=== PATIENT | male | born 1955 | race Caucasian/White ===

== ENCOUNTER → 2020-06-15 09:35 | Outpatient (BNVA) | payer MEDICARE, SELFPAY | PROVIDERS: PCP Family Medicine; Referring Provider Family Medicine; Visit Provider Anesthesiology | DX: G89.29 Other chronic pain (principal); M54.41 Lumbago with sciatica, right side; M54.42 Lumbago with sciatica, left side; M54.9 Dorsalgia, unspecified; K62.89 Other specified diseases of anus and rectum; G62.9 Polyneuropathy, unspecified; R20.0 Anesthesia of skin; Z79.891 Long term (current) use of opiate analgesic | CPT/HCPCS: 99204 ==

== ENCOUNTER → 2020-06-23 09:14 | Outpatient (BNVA) | payer MEDICARE, SELFPAY | PROVIDERS: PCP Family Medicine; Referring Provider Anesthesiology; Visit Provider Orthopaedic Surgery | DX: M54.41 Lumbago with sciatica, right side (principal); M54.42 Lumbago with sciatica, left side; G89.29 Other chronic pain; M48.061 Spinal stenosis, lumbar region without neurogenic claudication; M51.27 Other intervertebral disc displacement, lumbosacral region | CPT/HCPCS: 72114 ==

== ENCOUNTER → 2020-07-04 10:23 | Outpatient (BNVA) | payer MEDICARE, SELFPAY | PROVIDERS: PCP Family Medicine; Visit Provider Orthopaedic Surgery | DX: Z01.812 Encounter for preprocedural laboratory examination (principal); M48.061 Spinal stenosis, lumbar region without neurogenic claudication | CPT/HCPCS: 87635 ==

== ENCOUNTER 2020-07-11 08:31 | Day surgery (SDC) | payer MEDICARE, SELFPAY ==
[2020-07-08 15:15] VITALS: BMI 25.8
[2020-07-11] VITALS (7 sets, daily range): BP systolic 126–150; BP diastolic 72–97; PULSE 86–101; RESP 16–20; TEMP 36.3–36.6; O2SAT 95–100
--- NOTE | 2020-07-11 | XR_ITS ---
WS: [id number] C-ARM RADIOGRAPHS LUMBAR SPINE; 3 IMAGES HISTORY: L5,S1 DECOMPRESSION COMPARISON: 06/23/2020 Intraoperative imaging during spine decompression. Marker indicates L5-S1 level. XR/XR lumbar spine 2-3V* [id number] IMPRESSION: Marker placed at the L5-S1 level.
--- NOTE | 2020-07-11 | SCC_ITS ---
Procedure Done: 1. L5/S1 laminectomy with bilateral partial facetectomies 11.9 seconds of fluoroscopic guidance, for a cumulative dose of 3.94 mGy, was provided to Dr. Morris- by the radiology department. C-arm images of the lumbar spine were saved for the patient's permanent record. [facility]
[2020-07-11] MEDS: sodium chloride 0.9% 1,000 ML 30 ML IV (09:36)
--- NOTE | 2020-07-11 09:45 | ANES.PREANE2 ---
Pre-Anesthetic Assessment Pre-Anesthetic Assessment: Height/Weight: Height 1.78 m Weight 81.647 kg Temp Pulse Resp BP Pulse Ox 97.4 F L 87 18 147/84 100 07/11/20 09:09 07/11/20 09:09 07/11/20 09:09 07/11/20 09:09 07/11/20 09:09 Preop Diagnosis: lumbar stenosis Proposed Procedure: Operation Date: 07/11/20 09:45 Proposed Procedures p L5-S1 bilateral decompression, right side approach/ 79840, 00641 m48.061(Bilateral) - Connor Morris DO Familial anesthetic complications: None Was Beta Dani taken within 24 hours: N/A Last intake: Intake Last Liquid Date 07/10/20 Last Liquid Time 18:00 Last Solid Date 07/10/20 Last Solid Time 18:00 Social: Social History: No alcohol and No tobacco Exam: Pre-Anes Outpt Exam: alert, oriented x 3, clear to auscultation bilaterally and regular rate & rhythm Airway: Cervical ROM: WNL MP: 3 Dentition: Chipped CV/HEM: CV/HEM: HTN Musc/skel: Musc/skel: Lower Back Pain Neuropsych: Neuropsych: Neuropathy Anesthetic Plan: ASA status: 2 Anesthesia: General Risk of > 500 ml blood loss (7ml/kg in children): No Meds/Allergies Current Medications: Current Medications Generic Name Dose Route Start Last Admin Trade Name Freq PRN Reason Stop Dose Admin Sodium Chloride 1,000 mls @ 30 ml s/hr 07/11/20 09:00 07/11/20 09:36 Sodium Chloride 0.9% IV 07/12/20 08:59 30 mls/hr .Q24H YELITZA Administration PFSH Anesthesia PFSH: Medical History Chronic midline low back pain with bilateral sciatica Decreased rectal sphincter tone Encounter for narcotic contract discussion Neuropathy Numbness buttock, scrotum and penis Spinal fracture old L2 compression fracture Family History Brother Cancer Father Heart disease Mother Hypertension Social History Smoking and tobacco status: former smoker Alcohol intake: current Desire information about alcohol rehabilitation?: No Counseling given: No Data Anesthesia Cardiac Studies: No Data to Display
--- NOTE | 2020-07-11 10:35 | W.PM.OPSUD ---
Surgery/Procedure H&P Update DATE OF PROCEDURE: July 11, 2020 DATE H&P PERFORMED: 06/23/20 H&P UPDATE INFORMATION: I have reviewed H&P completed within last 30 days, I have examined patient prior to procedure and No changes to prior documentation PREOP DIAGNOSIS: lumbar stenosis PLANNED PROCEDURE: Operation Date: 07/11/20 09:45 Proposed Procedures p L5-S1 bilateral decompression, right side approach/ 09143, 17087 m48.061(Bilateral) - Connor Morris DO
[2020-07-11] MEDS: clindamycin 900 MG/50 ML PREMIX 100 MG IV (11:14)
--- NOTE | 2020-07-11 12:37 | P.OP_ITS ---
Operative Report Date of procedure: July 11, 2020 Pre-op Diagnosis: lumbar stenosis L5/S1 Post-op diagnosis: same Procedure Done: 1. L5/S1 laminectomy with bilateral partial facetectomies Surgeon: Connor Morris Anesthesia: General Estimated blood loss (mL): 5 Condition: stable Disposition: PACU Procedure: 1. L5/S1 laminectomy with bilateral partial facetectomies Patient is brought to the operative suite. After undergoing anesthesia they are placed in the supine position. All areas of impingement are well padded. Patient is then prepped and draped in the normal sterile fashion. A skin incision is made over the L5-S1 level. This is confirmed under c-arm jair dance. A series of dilators are passed and the tubular retractor is docked on the L5 lamina. A bovie is used to clear the soft tissue off the lamina and the L 5/S1 facet joint. A high speed kenya is then used to perform the laminectomy and take down the medial aspect of the L 5/S1 facet joint. A kerrison rongeure was then used to take down the remaining lamina and smooth the edged of the laminectomy up to the point where the ligamentum flavum attaches. Attention was then brought to the medial aspect of the facet joint. The remaining medial aspect of the superior and inferior aspect of the facet joint were taken down with the kerrison from the pedicle of L5 to S1. The facet joint had significant hypertrophy. Attention was then brought to the Ligamentum Flavum. The ligament was taken d own from the lamina of L5 to S1 and out medially to the remaining facet joint. The ligament was thickened. The dura was then exposed. The dura was in good repair. The L5 nerve was then traced with a curette out the L5/S1 foramen and found to be adequately decompressed. The S1 nerve was traced with a curette around the S1 pedicle. The lateral recess was opened with a kerrison helping to further decompress the S1 nerve. The tubular retractor was then tilted to the contralateral side. The bovie was used to take down the soft tissue on the spinous process. The high speed kenya was used to take down the spinous process and then the contralateral lamina of L5. The kerrison rongeur was used to take down the remaining lamina to the point where the ligamentum flavum attached and the ligamentum flavum was taken down from L5 to S1. The kerrison rongeur was then used to reach across and take down the medial aspect of the contralateral L5/S1 facet joint.The currete was used to trace the contralateral L5 nerve out the L5/S1 foramen to make sure it was decompressed adequatesly and the S1 was traced around the S1 pedicle. The lateral recess was opened further with the kerrison to ensure the S1 is adequately decompressed. Wound is then irrigated copiously with saline and surgiflo is used to stop any bleeding. The tubular retractor is removed and the wound is closed with vicryl and monocryl suture. Glue is then used to protect the wound. A sterile dressing is then placed. Patient was then placed in the supine position and transferred to the PACU in stable condition.
--- NOTE | 2020-07-11 15:47 | ANE.PACU2 ---
Inpatient post-anesthesia follow up: Airway intact: Yes Vital signs: Temperature 98 F Pulse Rate 86 Respiratory Rate 18 Blood Pressure 136/80 Pulse Oximetry 97 Oxygen Delivery Me thod Room Air Oxygen Flow Rate 8 Fraction of Inspir ed Oxygen Hydration adequate: Yes Nausea and vomiting: No Pain level: 2 Mental status: Baseline
--- NOTE | 2020-07-11 15:48 | ANE.PACU2 ---
Inpatient post-anesthesia follow up: Airway intact: Yes Vital signs: Temperature 98 F Pulse Rate 86 Respiratory Rate 18 Blood Pressure 136/80 Pulse Oximetry 97 Oxygen Delivery Me thod Room Air Oxygen Flow Rate 8 Fraction of Inspir ed Oxygen Nausea and vomiting: No Pain level: 2 Mental status: Baseline
== END 2020-07-11 13:30 | disposition home or self-care (01) ==
PROVIDERS: PCP Family Medicine; Visit Provider Orthopaedic Surgery
PROC: (CPT 63005; principal; 2020-07-11 09:45)
DX: M48.07 Spinal stenosis, lumbosacral region (principal); I10 Essential (primary) hypertension; Z87.891 Personal history of nicotine dependence
CPT/HCPCS: 63047; 72100; 76000; 96365; J2405; J2704; J3010; J3490; J7030

== ENCOUNTER → 2020-07-19 10:51 | Outpatient (BNVA) | payer MEDICARE, SELFPAY | PROVIDERS: PCP Family Medicine; Visit Provider Anesthesiology | DX: G89.29 Other chronic pain (principal); M54.41 Lumbago with sciatica, right side; M54.42 Lumbago with sciatica, left side; Z79.891 Long term (current) use of opiate analgesic | CPT/HCPCS: 99213 ==

== ENCOUNTER → 2020-09-01 00:01 | Outpatient (BNVA) | payer MEDICARE, SELFPAY | PROVIDERS: PCP Family Medicine; Visit Provider Orthopaedic Surgery | DX: Z48.89 Encounter for other specified surgical aftercare (principal); M54.41 Lumbago with sciatica, right side; M54.42 Lumbago with sciatica, left side; G89.29 Other chronic pain | CPT/HCPCS: 72100 ==

== ENCOUNTER 2020-09-08 08:17 | Outpatient (CLI) | payer MEDICARE, SELFPAY ==
--- NOTE | 2020-09-08 08:45 | MR_ITS ---
WS: [id number] MRI LUMBAR SPINE NONCONTRAST HISTORY: M47.9 - Spondylosis, unspecified COMPARISON: 03/04/2020 TECHNIQUE: Sagittal and axial multisequence imaging is submitted. Very slight increase in the cervical lordosis. Mild straightening of the normal lumbar lordosis. 2 mm retrolisthesis of L2. There is a remote compre ssion fracture at L2 involving the superior endplate without retropulsion. This fracture was describe d as subacute on a prior MRI from 03/06/2020. No residual marrow edema. Schmorl's node defect along the superior endplate of L4. Mild disc space narrowing and desiccation at L1-2 and L3-4. Conus terminates normally at L1-2 disc level. L1-L2: Normal. L2-L3: Mild bilateral facet joint arthritis and ligamentum flavum hypertrophy. Small amount of fluid in the facet joints. Very mild narrowing of the foramen, LEFT greater than RIGHT. L3-L4: Mild diffuse annular disc bulging with moderate ligamentum flavum disease and facet arthritis. There is very mild narrowing of the subarticular recesses, LEFT greater than RIGHT. Mild bilateral f oraminal stenosis and subarticular stenosis. L4-L5: Diffuse annular disc bulging and osteophytic ridging. There is also a very small central disc protrusion with annular fissure. Mild ligamentum flavum disease and facet arthritis. Minimal encroac hment upon the LEFT subarticular recess by disc osteophyte disease. Only mild foraminal narrowing. L5-S1: Mild annular disc bulging is asymmetric to the RIGHT. RIGHT paracentral annular fissure. No si gnificant stenosis. MR/MR lumbar spine wo con* [id number] IMPRESSION: 1. Remote stable L2 20% compression fracture without retropulsion. 2. No significant central or foraminal stenosis. 3. Asymmetric disc bulge to the RIGHT at L5-S1 with annular fissure. 4. Mild bilateral foraminal and subarticular recess stenosis at L3-4 due to di sc osteophyte and facet disease. 5. Mild LEFT subarticular recess and foraminal narrowing at L4-5. 6. No significant progression of disease since the prior study from 03/04/2020.
== END 2020-09-08 08:18 | disposition home or self-care (01) ==
LOC: RADSHAW 08:21
PROVIDERS: PCP Family Medicine; Visit Provider Orthopaedic Surgery
DX: M47.9 Spondylosis, unspecified (principal); M48.061 Spinal stenosis, lumbar region without neurogenic claudication; S32.020A Wedge compression fracture of second lumbar vertebra, initial encounter for closed fracture; X58.XXXA Exposure to other specified factors, initial encounter; M51.27 Other intervertebral disc displacement, lumbosacral region
CPT/HCPCS: 72148

== ENCOUNTER → 2020-09-14 07:55 | Outpatient (BNVA) | payer MEDICARE, SELFPAY | PROVIDERS: PCP Family Medicine; Visit Provider Anesthesiology | DX: G89.29 Other chronic pain (principal); M54.41 Lumbago with sciatica, right side; M54.42 Lumbago with sciatica, left side; G62.9 Polyneuropathy, unspecified; K62.89 Other specified diseases of anus and rectum; K59.00 Constipation, unspecified; Z48.89 Encounter for other specified surgical aftercare | CPT/HCPCS: 99213 ==

== ENCOUNTER 2020-09-18 11:48 | Inpatient (IN) | payer MEDICARE, SELFPAY ==
[2020-09-18 11:52] VITALS: BP 148/89; PULSE 136; RESP 18; TEMP 36.9; O2SAT 97; BMI 29.4
--- NOTE | 2020-09-18 11:56 | ECG_ITS ---
[facility] Test Date: 2020-09-18 Pat Name: Bakari Douglass Department: Room: Gender: Male [employer]: : 1955 Requested By: Katherine Weathers Order Number: [id number] Reading MD: SUSANNA PETIT Measurements Intervals [place] Rate: 127 P: 71 MN: 164 QRS: 56 QRSD: 90 T: 75 QT: 288 QTc: 420 Interpretive Statements SINUS TACHYCARDIA ABNORMAL RHYTHM ECG No previous ECG available for comparison Electronically Signed On 09-18-2020 21:16:41 CDT by SUSANNA PETIT [id number]
--- NOTE | 2020-09-18 11:56 | XRR_ITS ---
PROCEDURE INFORMATION: Exam: XR Chest Exam date and time: 09/18/2020 1:31 PM Age: 65 years old Clinical indication: Altered mental status TECHNIQUE: Imaging protocol: XR of the chest. Views: 1 view. COMPARISON: No relevant prior studies available. FINDINGS: Lungs: There is fullness of the right hilum that may reflect patient rotation and superimposed vascular structures. There is minimal scarring or atelectasis at the lung bases. No joy consolidation is seen. Pleural spaces: No pleural effusion. No pneumothorax. Heart/Mediastinum: No gross evidence of pneumomediastinum. Bones/joints: No gross fracture. XR/XR chest 1V portable [id number] IMPRESSION: There is fullness of the right hilum that may reflect patient rotation and superimposed vascular structures. Consider PA and lateral chest radiographs or chest CT to better characterize.
--- NOTE | 2020-09-18 12:31 | W.ED.PSYCH ---
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 HPI - Psych General: Chief Complaint: Psychiatric Symptoms Stated Complaint: PSYCH EVAL Time Seen by Provider: 09/18/20 11:59 PFSH ED PFSH: Medical History Chronic midline low back pain with bilateral sciatica Neuropathy Spinal fracture old L2 compression fracture Surgical History H/O unilateral orchiectomy Right History of back surgery L5/S1 laminectomy with bilateral partial facetectomies- Dr. Morris at [facility] Family History Brother Cancer Father Heart disease Mother Hypertension Social History Smoking and tobacco status: former smoker Alcohol intake: current Desire information about alcohol rehabilitation?: No Counseling given: No History of recent travel: No MDM - Psych MDM Narrative: Medical decision making narrative: 65-year-old male here with a change in behavior. He was checked out to me by Dr. Romo at shift change. We are attempting to find geriatric psychiatry placement for this gentleman. We have run into some difficulty with bed availability across the [place]. We have been told by a couple of facility they may have beds open later today. His labs are stabilized, and he remains medically stable. He has given us no behavioral issues. Lab Data: Labs: Lab Results 09/18/20 09/18/20 09/18/20 Range/Units 12:10 12:14 12:14 WBC 7.5 (4.0-10.0) 10^3/ uL RBC 4.69 (4.1-5.3) 10^6/u L Hgb 14.8 (11.7-16.6) g/dL Hct 43.7 (42.0-52.0) % MCV 93.2 (80-94) fL MCH 31.6 (28.0-34.0) pg MCHC 33.9 (30.0-36.0) g/dL RDW 12.1 (12.1-15.1) % Plt Count 310 (130-400) 10^3/c mm MPV 9.6 (7.4-10.4) fL Neut % (Auto) 70.0 % Lymph % (Auto) 17.3 % [place] % (Auto) 8.3 % Eos % (Auto) 3.6 % Baso % (Auto) 0.5 % Neut # (Auto) 5.25 (1.8-7.7) 10^3/u L Lymph # (Auto) 1.3 (0.8-4.8) 10^3/u L [place] # (Auto) 0.6 (0.2-0.9) 10^3/u L Eos # (Auto) 0.3 (0.0-0.8) 10^3/u L Baso # (Auto) 0.0 (0.0-0.1) 10^3/u L Nucleated RBC % (a uto) 0 % Nucleated RBCs # 0.0 /100WBC Sodium (136-145) mmol/L Potassium (3.5-5.1) mmol/L Chloride (98-107) mmol/L Carbon Dioxide (22-29) mmol/L Anion Gap (5-19) BUN (8-23) mg/dL Creatinine (0.7-1.2) mg/dL GFR Calculation (90-130) mL/min Glucose (65-115) mg/dL Calculated Osmolal ity (285-295) mOsm/k g Lactate (0.5-2.2) mmol/L Calcium (8.5-10.5) mg/dL Total Bilirubin (0.15-1.2) mg/dL AST (0-40) U/L ALT (0-41) U/L Alkaline Phosphata se (40-130) IU/L Ammonia 33 (16-60) umol/L C-Reactive Protein 1.3 (0.0-4.9) mg/L Total Protein (6.6-8.7) g/dL Albumin (3.5-5.2) g/dL Globulin (1.3-4.6) g/dL Lipase (13-60) U/L Urine Color (Yellow) Urine Appearance (CLEAR) Urine pH (5-7) Ur Specific Gravit y (1.005-1.030) Urine Protein (Negative) Urine Glucose (UA) (Normal) Urine Ketones (Negative) Urine Blood (Negative) Urine Nitrate (Negative) Urine Bilirubin (Negative) Prot Sulfosalicyli c Acd (Negative) Urine Urobilinogen (Negative) mg/dL Ur Leukocyte Serene ase (Negative) Salicylates (3-10) mg/dL Urine Opiates Scre en (Negative) ng/mL Acetaminophen (10-30) ug/mL Ur Barbiturates Sc reen (Negative) ng/mL Ur Phencyclidine S crn (Negative) ng/mL Ur Amphetamines Sc reen (Negative) ng/mL U Benzodiazepines Scrn (Negative) ng/mL Urine Cocaine Scre en (Negative) ng/mL U Marijuana (THC) Screen (Negative) ng/mL Ethyl Alcohol (0-10) mg/dL SARS-CoV-2 Ag (Rap id) (Negative) 09/18/20 09/18/20 09/18/20 Range/Units 12:14 12:14 14:50 WBC (4.0-10.0) 10^3/ uL RBC (4.1-5.3) 10^6/u L Hgb (11.7-16.6) g/dL Hct (42.0-52.0) % MCV (80-94) fL MCH (28.0-34.0) pg MCHC (30.0-36.0) g/dL RDW (12.1-15.1) % Plt Count (130-400) 10^3/c mm MPV (7.4-10.4) fL Neut % (Auto) % Lymph % (Auto) % [place] % (Auto) % Eos % (Auto) % Baso % (Auto) % Neut # (Auto) (1.8-7.7) 10^3/u L Lymph # (Auto) (0.8-4.8) 10^3/u L [place] # (Auto) (0.2-0.9) 10^3/u L Eos # (Auto) (0.0-0.8) 10^3/u L Baso # (Auto) (0.0-0.1) 10^3/u L Nucleated RBC % (a uto) % Nucleated RBCs # /100WBC Sodium 138 (136-145) mmol/L Potassium 4.0 (3.5-5.1) mmol/L Chloride 101 (98-107) mmol/L Carbon Dioxide 23 (22-29) mmol/L Anion Gap 18.0 (5-19) BUN 9 (8-23) mg/dL Creatinine 0.7 (0.7-1.2) mg/dL GFR Calculation 112.5 (90-130) mL/min Glucose 113 (65-115) mg/dL Calculated Osmolal ity 285 (285-295) mOsm/k g Lactate 2.5 H (0.5-2.2) mmol/L Calcium 9.0 (8.5-10.5) mg/dL Total Bilirubin 0.3 (0.15-1.2) mg/dL AST 17 (0-40) U/L ALT 15 (0-41) U/L Alkaline Phosphata se 80 (40-130) IU/L Ammonia (16-60) umol/L C-Reactive Protein (0.0-4.9) mg/L Total Protein 7.3 (6.6-8.7) g/dL Albumin 4.6 (3.5-5.2) g/dL Globulin 2.7 (1.3-4.6) g/dL Lipase 15 (13-60) U/L Urine Color Yellow (Yellow) Urine Appearance Clear (CLEAR) Urine pH 8 H (5-7) Ur Specific Gravit y 1.010 (1.005-1.030) Urine Protein Neg (Negative) Urine Glucose (UA) Norm (Normal) Urine Ketones Negative (Negative) Urine Blood Neg (Negative) Urine Nitrate Negative (Negative) Urine Bilirubin Neg (Negative) Prot Sulfosalicyli c Acd Negative (Negative) Urine Urobilinogen Norm (Negative) mg/dL Ur Leukocyte Serene ase Negative (Negative) Salicylates < 0.3 L (3-10) mg/dL Urine Opiates Scre en (Negative) ng/mL Acetaminophen < 5.0 L (10-30) ug/mL Ur Barbiturates Sc reen (Negative) ng/mL Ur Phencyclidine S crn (Negative) ng/mL Ur Amphetamines Sc reen (Negative) ng/mL U Benzodiazepines Scrn (Negative) ng/mL Urine Cocaine Scre en (Negative) ng/mL U Marijuana (THC) Screen (Negative) ng/mL Ethyl Alcohol < 10 (0-10) mg/dL SARS-CoV-2 Ag (Rap id) (Negative) 09/18/20 09/18/20 09/18/20 Range/Units 14:50 17:42 19:50 WBC (4.0-10.0) 10^3/ uL RBC (4.1-5.3) 10^6/u L Hgb (11.7-16.6) g/dL Hct (42.0-52.0) % MCV (80-94) fL MCH (28.0-34.0) pg MCHC (30.0-36.0) g/dL RDW (12.1-15.1) % Plt Count (130-400) 10^3/c mm MPV (7.4-10.4) fL Neut % (Auto) % Lymph % (Auto) % [place] % (Auto) % Eos % (Auto) % Baso % (Auto) % Neut # (Auto) (1.8-7.7) 10^3/u L Lymph # (Auto) (0.8-4.8) 10^3/u L [place] # (Auto) (0.2-0.9) 10^3/u L Eos # (Auto) (0.0-0.8) 10^3/u L Baso # (Auto) (0.0-0.1) 10^3/u L Nucleated RBC % (a uto) % Nucleated RBCs # /100WBC Sodium (136-145) mmol/L Potassium (3.5-5.1) mmol/L Chloride (98-107) mmol/L Carbon Dioxide (22-29) mmol/L Anion Gap (5-19) BUN (8-23) mg/dL Creatinine (0.7-1.2) mg/dL GFR Calculation (90-130) mL/min Glucose (65-115) mg/dL Calculated Osmolal ity (285-295) mOsm/k g Lactate 1.2 (0.5-2.2) mmol/L Calcium (8.5-10.5) mg/dL Total Bilirubin (0.15-1.2) mg/dL AST (0-40) U/L ALT (0-41) U/L Alkaline Phosphata se (40-130) IU/L Ammonia (16-60) umol/L C-Reactive Protein (0.0-4.9) mg/L Total Protein (6.6-8.7) g/dL Albumin (3.5-5.2) g/dL Globulin (1.3-4.6) g/dL Lipase (13-60) U/L Urine Color (Yellow) Urine Appearance (CLEAR) Urine pH (5-7) Ur Specific Gravit y (1.005-1.030) Urine Protein (Negative) Urine Glucose (UA) (Normal) Urine Ketones (Negative) Urine Blood (Negative) Urine Nitrate (Negative) Urine Bilirubin (Negative) Prot Sulfosalicyli c Acd (Negative) Urine Urobilinogen (Negative) mg/dL Ur Leukocyte Serene ase (Negative) Salicylates (3-10) mg/dL Urine Opiates Scre en Positive H (Negative) ng/mL Acetaminophen (10-30) ug/mL Ur Barbiturates Sc reen Negative (Negative) ng/mL Ur Phencyclidine S crn Negative (Negative) ng/mL Ur Amphetamines Sc reen Negative (Negative) ng/mL U Benzodiazepines Scrn Positive H (Negative) ng/mL Urine Cocaine Scre en Negative (Negative) ng/mL U Marijuana (THC) Screen Negative (Negative) ng/mL Ethyl Alcohol (0-10) mg/dL SARS-CoV-2 Ag (Rap id) Negative (Negative) Discharge Plan Discharge Prescriptions: No Action alprazolam 1 mg tablet 1 mg PO QID PRN (Reason: Anxiety) RF: 0 trazodone 50 mg tablet 50 - 100 mg PO BEDTIME PRN (Reason: Sleep) RF: 0 lisinopril 20 mg tablet 20 mg PO DAILY PRN (Reason: pt states uses for bowels) RF: 0 loratadine [Allergy Relief (loratadine)] 10 mg tablet 10 mg PO DAILY RF: 0 chlorzoxazone 500 mg tablet 500 mg PO QID PRN (Reason: Muscle Spasm) RF: 0 hydromorphone 2 mg tablet 2 mg PO TID MDD 3 tabs PRN (Reason: Pain) RF: 0 docusate sodium 100 mg capsule 100 mg PO BID 30 Days Qty: 60 RF: 0 lactulose 10 gram/15 mL solution 10 g PO BID 30 Days Qty: 900 RF: 0 Linzess 145 mcg capsule 145 mcg PO DAILY RF: 0 Probiotic 1 cap PO DAILY RF: 0 Sign Out Sign Out Data: Patient Sign Out occurred on 09/18/20 at 19:55. Patient's care was discussed, and care was transferred from ASAD Márquez to Neha Romo MD, [facility] [place]. Sign Out Comment: Transfer of care to Dr. Romo, [place] and lateral of the chest with torturous aorta, normal findings, CT abdomen with normal findings, lactic acid found to be 2.5, patient has remained alert and oriented, will attempt to find [facility] psych placement for the patient. Last updated by Katherine Hidalgo ARNP at 09/18/20 17:34 Coding Level of Care Code ED Steam Box Tender for Chg Fwd Exam Comprehensive
[2020-09-18 12:36] LABS: Basophils % 0.5 %; Eosinophils # 0.3 10^3/uL (0.0-0.8); Eosinophils % 3.6 %; Hematocrit 43.7 % (42.0-52.0); Hemoglobin 14.8 g/dL (11.7-16.6); Lymphocytes # 1.3 10^3/uL (0.8-4.8); Lymphocytes % 17.3 %; Mean Corpuscular HGB Conc 33.9 g/dL (30.0-36.0); Mean Corpuscular Hemoglobin 31.6 pg (28.0-34.0); Mean Corpuscular Volume 93.2 fL (80-94); Mean Platelet Volume 9.6 fL (7.4-10.4); Monocytes # 0.6 10^3/uL (0.2-0.9); Monocytes % 8.3 %; Neutrophils # 5.25 10^3/uL (1.8-7.7); Nucleated Red Blood Cells % 0 %; Platelet Count 310 10^3/cmm (130-400); Red Blood Count 4.69 10^6/uL (4.1-5.3); Red Cell Distribution Width 12.1 % (12.1-15.1); White Blood Count 7.5 10^3/uL (4.0-10.0)
[2020-09-18 12:54] LABS: Lactate (Lactic Acid level) 2.5 mmol/L (0.5-2.2)
[2020-09-18 12:55] LABS: Ammonia 33 umol/L (16-60)
[2020-09-18] MEDS: LORazepam 2 mg/mL INJ 1 mL IM (12:56)
[2020-09-18 13:11] LABS: Alanine Aminotransferase 15 U/L (0-41); Albumin Level 4.6 g/dL (3.5-5.2); Alkaline Phosphatase 80 IU/L (40-130); Aspartate Amino Transferase 17 U/L (0-40); Blood Urea Nitrogen 9 mg/dL (8-23); Carbon Dioxide 23 mmol/L (22-29); Chloride 101 mmol/L (98-107); Globulin 2.7 g/dL (1.3-4.6); Glomerular Filtration Rate 112.5 mL/min (90-130); Glucose 113 mg/dL (65-115); Lipase 15 U/L (13-60); Osmolality Calculated 285 mOsm/kg (285-295); Sodium 138 mmol/L (136-145); Total Bilirubin 0.3 mg/dL (0.15-1.2); Total Protein 7.3 g/dL (6.6-8.7)
--- NOTE | 2020-09-18 13:14 | CTR_ITS ---
PROCEDURE INFORMATION: Exam: CT Abdomen And Pelvis With Contrast Exam date and time: 09/18/2020 1:50 PM Age: 65 years old Clinical indication: Back pain. Abdominal pain. Lower flank. TECHNIQUE: Imaging protocol: Computed tomography of the abdomen and pelvis with contrast. Radiation optimization: All CT scans at this facility use at least one of these dose optimization techniques: automated exposure control; mA and/or kV adjustment per patient size (includes targeted exams where dose is matched to clinical indication); or iterative reconstruction. Contrast material: OMN 300; Contrast volume: 95 ml; Contrast route: INTRAVENOUS (IV); COMPARISON: No relevant prior studies available. RADIATION DOSE METRICS: Total DLP (mGy-cm): 1515.87 FINDINGS: Lungs: There is dependent microatelectasis at the lung bases. No pericardial effusion. No hiatal hernia. Liver: A hepatic hypodensity measuring less than 5 mm is too small to accurately characterize and requires no follow-up. Gallbladder and bile ducts: The gallbladder is unremarkable. Pancreas: The pancreas is unremarkable. Spleen: The spleen is unremarkable. Adrenal glands: The adrenal glands are unremarkable. Kidneys and ureters: A simple right renal cyst measures 2 cm. Subcentimeter renal hypodensities are too small to accurately characterize and require no follow-up. Stomach and bowel: The stomach and small bowel are unremarkable. Moderate stool in the colon; query constipation. Colonic diverticulosis without evidence of acute diverticulitis. Appendix: The appendix is mildly prominent. No periappendiceal edema is seen to suggest acute appendicitis. Intraperitoneal space: No free intraperitoneal air. Vasculature: No abdominal aortic aneurysm. Lymph nodes: No retroperitoneal lymphadenopathy. Urinary bladder: The bladder is unremarkable. Reproductive: The prostate measures 3.7 x 5.1 cm. Bones/joints: No acute fracture is seen. A mild compression fracture at L2 appears chronic. Soft tissues: Small fat containing left inguinal hernia. Small fat containing umbilical hernia. CT/CT abdomen pelvis w con* [id number] IMPRESSION: 1. Moderate stool in the colon; query constipation. 2. Colonic diverticulosis without evidence of acute diverticulitis. COMMENTS: Consistent with the [employer]'s Incidental Findings Committee white paper (J Am Lui Radiol 2018): Any incidental renal lesion less than 1 cm or classified as too small to characterize, or any incidental cystic renal lesion characterized as simple-appearing, is likely benign. No follow-up imaging is recommended for these lesions per consensus recommendations based on imaging criteria. Radiation Dose CTDIVOL = (mGy): DLP = 1515.87 (mGy-cm)
[2020-09-18 13:16] LABS: Acetaminophen < 5.0 ug/mL (10-30); Alcohol Level < 10 mg/dL (0-10); Salicylate < 0.3 mg/dL (3-10)
[2020-09-18 13:23] VITALS: BP 113/80; PULSE 113; RESP 31; O2SAT 99
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
[2020-09-18 14:03] LABS: C Reactive Protein 1.3 mg/L (0.0-4.9)
[2020-09-18] MEDS: iohexol 300 mg/mL 100 mL Btl IV (14:21)
[2020-09-18 14:23] VITALS: BP 106/62; PULSE 115; RESP 15; O2SAT 98
[2020-09-18 14:57] LABS: Add Urine Microscopic? NO; Charge for UA Resulting for Rev
[2020-09-18 15:00] VITALS: PULSE 113; RESP 18; O2SAT 98
[2020-09-18 15:21] LABS: Amphetamines Screen Urine Negative (Negative); Barbiturates Screen Urine Negative (Negative); Benzodiazepines Screen Urine Positive (Negative); Cocaine Screen Urine Negative (Negative); Opiate Screen Urine Positive (Negative); PCP Screen Urine Negative (Negative); THC Screen Urine Negative (Negative)
--- NOTE | 2020-09-18 15:42 | XRR_ITS ---
PROCEDURE INFORMATION: Exam: XR Chest Exam date and time: 09/18/2020 3:43 PM Age: 65 years old Clinical indication: Abnormal chest x-ray. TECHNIQUE: Imaging protocol: XR of the chest. Views: 2 views. COMPARISON: CR (CHEST, ) 09/18/2020 1:48 PM FINDINGS: Lungs: The lungs are hyperinflated. No pulmonary consolidation. Pleural spaces: No pleural effusion. No pneumothorax. Heart/Mediastinum: The cardiac silhouette is unremarkable. No gross evidence of pneumomediastinum. Vasculature: The aorta is tortuous. Bones/joints: A mild compression fracture at L2 appears chronic. XR/XR chest 2V* [id number] IMPRESSION: 1. Pulmonary hyperinflation; query COPD, asthma or other obstructive lung disease. 2. Tortuous aorta.
[2020-09-18 15:49] LABS: Bilirubin Urine Neg (Negative); Blood Urine Neg (Negative); Glucose Urine UA Norm (Normal); Ketones Urine Negative (Negative); Leukocyte Esterase Urine Negative (Negative); Nitrate Urine Negative (Negative); Protein Urine Neg (Negative); Sulfosalicylic Acid Urine Negative (Negative); Urine Appearance Clear (CLEAR); Urine Color Yellow (Yellow); Urobilinogen Urine Norm (Negative); pH Urine 8 (5-7)
[2020-09-18 16:00] VITALS: BP 106/62; PULSE 113; RESP 18; TEMP 36.9; O2SAT 98
[2020-09-18] MEDS: sodium chloride 0.9% 1,000 ML 999 ML IV (17:36)
[2020-09-18] MEDS: ziprasidone 20 mg/mL SDV 10 MG IM (17:45)
[2020-09-18 18:21] LABS: SARS Covid-2 Antigen Negative (Negative)
[2020-09-18 20:14] LABS: Lactate (Lactic Acid level) 1.2 mmol/L (0.5-2.2)
[2020-09-18] MEDS: ALPRAZolam 0.5 mg Tablet 1 MG PO (22:52)
[2020-09-19 02:47] VITALS: RESP 16
[2020-09-19] MEDS: LORazepam 1 mg Tablet PO (02:47)
[2020-09-19] MEDS: oxyCODONE-APAP 5-325 mg Tablet 2 TAB PO (02:47)
--- NOTE | 2020-09-19 06:59 | PC.NURSE ---
psych facilities contacted list in paper chart
--- NOTE | 2020-09-19 07:10 | PC.NURSE ---
pt up in room as nurse went in with attempts to provide breakfast tray to pt. pt refused drinks and food saying I don't need anything just leave me alone
--- NOTE | 2020-09-19 09:06 | PC.NURSE ---
pt continues to not be aggressive with staff. one-on-one sitter remains at bedside. case management working on obtaining vivek placement.
--- NOTE | 2020-09-19 11:34 | PC.NURSE ---
pt continuously asking for pain medications. er physician notified. home medications verified with pharmacy clinical specialist. pt states i take my lorazopam and dilaudid at home for my pain . orders placed per verbal order of dr. cummins
[2020-09-19] MEDS: ALPRAZolam 0.5 mg Tablet 1 MG PO (11:48)
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
[2020-09-19 13:05] VITALS: BP 137/88; PULSE 99; O2SAT 98
[2020-09-19 15:17] VITALS: BP 136/80; PULSE 10; RESP 20; TEMP 36.9; O2SAT 98
[2020-09-19 16:17] VITALS: BP 136/80; PULSE 10; RESP 20; TEMP 36.9; O2SAT 98
[2020-09-19 19:22] VITALS: BP 136/80; PULSE 10; RESP 20; TEMP 36.9; O2SAT 98
[2020-09-19] MEDS: lactulose oral liq 20 gm/30 mL UDC 10 GM PO (20:04)
[2020-09-19] MEDS: docusate sodium 100 mg Capsule PO (20:04)
[2020-09-19 20:39] VITALS: BP 110/81; PULSE 104; RESP 15; TEMP 36.8; O2SAT 96
[2020-09-20] MEDS: acetaminophen 325 mg Tablet 650 MG PO (03:52)
[2020-09-20 06:00] VITALS: BP 150/90; PULSE 86; RESP 19; TEMP 36.8; O2SAT 93
[2020-09-20] MEDS: ibuprofen 600 mg Tablet PO (07:19)
[2020-09-20] MEDS: docusate sodium 100 mg Capsule PO ×2 (08:34→19:31)
[2020-09-20] MEDS: lactulose oral liq 20 gm/30 mL UDC 10 GM PO ×2 (08:34→19:31)
[2020-09-20] MEDS: loratadine 10 mg Tablet PO (08:34)
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
[2020-09-20 14:00] VITALS: BP 148/89; PULSE 122; RESP 18; TEMP 36.1; O2SAT 97
[2020-09-20 19:44] VITALS: BP 130/76; PULSE 93; RESP 17; TEMP 36.9; O2SAT 97
[2020-09-21 05:32] VITALS: BP 116/86; PULSE 109; RESP 15; TEMP 37.1; O2SAT 99
[2020-09-21] MEDS: duloxetine 20 mg Capsule PO (08:35)
[2020-09-21] MEDS: loratadine 10 mg Tablet PO (08:35)
[2020-09-21] MEDS: lactulose oral liq 20 gm/30 mL UDC 10 GM PO ×2 (08:35→20:33)
[2020-09-21] MEDS: docusate sodium 100 mg Capsule PO ×2 (08:35→20:32)
[2020-09-21 14:00] VITALS: BP 128/82; PULSE 88; RESP 18; TEMP 36.5; O2SAT 97
[2020-09-21 14:52] LABS: Coronavirus Test Green County Not Detected
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
[2020-09-21 20:03] VITALS: BP 132/84; PULSE 82; RESP 15; TEMP 36.3; O2SAT 98
[2020-09-22] MEDS: ibuprofen 600 mg Tablet PO ×2 (04:38→20:50)
[2020-09-22] MEDS: hyDROXYzine 25 mg Capsule 50 MG PO (04:39)
--- NOTE | 2020-09-22 04:57 | PC.NURSE ---
visteral 50mg PO given for back discomfort and anxiety.
[2020-09-22 06:00] VITALS: BP 124/82; PULSE 123; RESP 18; TEMP 36.5; O2SAT 99
[2020-09-22] MEDS: duloxetine 20 mg Capsule PO ×2 (09:04→20:50)
[2020-09-22] MEDS: lactulose oral liq 20 gm/30 mL UDC 10 GM PO ×2 (09:04→20:52)
[2020-09-22] MEDS: docusate sodium 100 mg Capsule PO ×2 (09:04→20:50)
[2020-09-22] MEDS: loratadine 10 mg Tablet PO (09:04)
--- NOTE | 2020-09-22 10:42 | PC.SOCIAL ---
IMM completed with pt on 09/22/20 @ [id number]. Pt stated he understands his writes and copy of rights will be placed in discharge information.
[2020-09-22 14:00] VITALS: BP 133/97; PULSE 76; RESP 16; TEMP 37.1; O2SAT 95
[2020-09-22] MEDS: HYDROcodone-acetaminophen 5-325 mg Tablet 1 TAB PO (15:59)
--- NOTE | 2020-09-22 18:50 | PM.NPN ---
Subjective NPU Subjective: Interval history: Bakari presents today seeming to be confused at 1 point asking me I left yesterday. We did a MMSE and he scored a 19 out of 30 repeatedly believing that he was in [place]. Spent some time talking to his and identifying that his Xanax dose has been increased from 3-day to 4-day and the days prior to admission he may have been taking as much as 6 a day. We discussed the fact that we needed to identify what was causing this likely delirium versus possible mild dementia mixed with altered mental status. We discussed the fact that we would need to continue his hospitalization. Mental Status Exam MSE Comments: This is an overweight versus obese older white male with hospital scrubs on with improved grooming and adequate eye contact. No abnormal movements except for mild anxiety and tremulousness. Cooperative with exam in mild distress. Speech was more normal rate and volume. Mood described as my mind is not right, affect congruent, and confused. Thought process organized mostly but with moments of disorganization. Thought content: Patient denied suicidal or homicidal ideation, there were no delusions reported or noted, he denied any auditory or visual hallucinations. Attention and concentration were limited and memory appeared unreliable but none were formally tested. He is alert and oriented x3. Insight and judgment are impaired and impulse control is limited. Vitals/I&O/Wt Last Vital Signs Temp 98.8 F 09/22/20 22:00 Pulse 86 09/22/20 22:00 Resp 18 09/22/20 22:00 BP 148/86 09/22/20 22:00 Pulse Ox 98 09/22/20 22:00 Data NPU : 09/18/20 12:14 09/18/20 12:14 A&P Additional A&P Information (1) Constipation: (2) Encounter for postoperative care: (3) Numbness: (4) Neuropathy: (5) Decreased rectal sphincter tone: (6) Spinal fracture: (7) Chronic midline low back pain with bilateral sciatica: (8) Suicidal ideation: (9) Aggressive behavior: (10) Threatening suicide: Additional A&P Information This is a 65-year-old white male with a long history of medical issues including significant pain which has been without relief recently leading to an interaction with the police and his that led to him being put on a 96-hour hold. 1. Continue current medication. Changed his Xanax to 0.5 mg p.o. 3 times daily scheduled with backup of Ativan for breakthrough symptoms of withdrawal consistent with CIWA but 1 mg doses. 2. Encourage individual, group and milieu therapy. 3. Continue every 15 minute checks for safety. 4. Continue to evaluate for safety for discharge. Involuntary Hold Information 96 Hour Hold: 96 Hour Involuntary Admission: Yes 96 Hour Hold Ending Date: 09/23/20 96 Hour Hold Ending Time: 00:00 Attestations NPU Medical Necessity Statement*: Inpatient hospitalization is medically necessary and the clinically appropriate intervention at this time. Will monitor medications and make changes as indicated. Likely length of stay 1-3 days. We will file a 96-hour hold on the grounds of his inability to make informed consent in this delirious/withdrawal state versus overuse state of Xanax. Coding Level of Care Code Acute Vp [employer] for David Carranza
[2020-09-22] MEDS: ALPRAZolam 0.5 mg Tablet PO (20:51)
[2020-09-22] MEDS: ondansetron 4 MG Tablet PO (21:40)
--- NOTE | 2020-09-22 21:46 | PC.NURSE ---
Behavior Pt is confused, he does not answer questions appropriately, does not know where he is at this time, pt reoriented, complains of back pain rated a 5, med nurse notified, pt is talking non-stop regarding MRI he had in [facility] this morning with his , (he was on the unit at that time,) Pt is not able to tell me where he is currently. He is visably anxious, he heard the intercom overhead telling visitors that visiting hours was over, He said, where is my family, I can not find them , pt does believes they were just here, and seemed upset when nurse reoriented him to time, and the fact that there were no visitors here at this time, pt started talking about medication, Cymbalta, put me in the grave, I picked out my coffin and everything today. Very confused.
[2020-09-22 22:00] VITALS: BP 148/86; PULSE 86; RESP 18; TEMP 37.1; O2SAT 98
--- NOTE | 2020-09-22 22:34 | PC.NURSE ---
At 21:30 patient C/O mild nausea. 4mg zofran PO was given at 21:40. At 22:30 patient was sleeping.
[2020-09-23] MEDS: acetaminophen 325 mg Tablet 650 MG PO (00:34)
--- NOTE | 2020-09-23 03:12 | PC.NURSE ---
Behavior/ CIWA 16 pt confused, disoriented, increasingly agitated, unsure of why he is here. Pt believes that he is in a drug trial, that he is being observed and tortured. Moderate perspiration, increased activity, restless, and refusing medication from staff. Tremors felt by pt and they are visible when pt extends arms. Pt is worried about missing appointment in [facility]. pt expressed being in constant pain. rates it a 8 on 1-10 pain scale, but refused medication because he believes, the doctor is setting him up to fail, they gave him this medication, that I never abuse, but they want to torture me. I don't want medication, pt returned to bed with complains of restless leg pain and describes spasms in his leg muscles. will continue to observe
[2020-09-23 06:00] VITALS: BP 146/66; PULSE 82; RESP 17; TEMP 38.1; O2SAT 98
[2020-09-23] MEDS: lactulose oral liq 20 gm/30 mL UDC 10 GM PO ×2 (07:53→20:06)
[2020-09-23] MEDS: loratadine 10 mg Tablet PO (07:55)
[2020-09-23] MEDS: ALPRAZolam 0.5 mg Tablet PO ×3 (07:55→20:08)
[2020-09-23] MEDS: duloxetine 20 mg Capsule PO ×2 (07:55→20:07)
[2020-09-23] MEDS: docusate sodium 100 mg Capsule PO ×2 (07:56→20:07)
[2020-09-23 14:00] VITALS: BP 110/72; PULSE 89; RESP 18; TEMP 36.3; O2SAT 96
--- NOTE | 2020-09-23 14:05 | P.PN_ITS ---
Subjective NPU Subjective: Interval history: Bakari presents today reporting that he is doing fine and better. He referred to some of our interactions yesterday but continue to be somewhat confused about them. He was somewhat proud to announce that he was able to determine that he is in [facility] when yesterday he was saying he was back in [place]. To investigate his ability to figure out complicated situations and considering him going home we posed the question of what he would do if he woke up in a strange room and there was a paper outside that gave the date and time in [facility]. He was unable to respond to this challenge and was confused throughout most of the interview talking about dreams that this instructional writer may have been an thinking that the sprinklers were cameras and that we had taped him in referring to the tapes that we have made for us to reverse back and look at the tapes to see what happened and I assured him we have not been taking him during this hospitalization. Explained to him that we had concerns about his Xanax use and we were trying to make sure his pain was managed but he also struggles to even be organized enough to ask for what he needs when it comes to pain or anxiety. Mental Status Exam MSE Comments: This is an overweight versus obese older white male with hospital scrubs on with improved grooming and adequate eye contact. No a bnormal movements except for mild psychomotor agitation. Cooperative with exam in mild distress. Speech was slightly increased rate and normal volume. Mood described as I am better, affect anxious, and confused. Thought process organized mostly but with moments of disorganization. Thought content: Patient denied suicidal or homicidal ideation, there were no delusions reported or noted, he denied any auditory or visual hallucinations. Attention and concentration were mostly intact and memory appeared unreliable but none were formally tested. He is alert and oriented x3. Insight and judgment are impaired and impulse control is limited. Vitals/I&O/Wt Last Vital Signs Temp 100.6 F H 09/23/20 06:00 Pulse 82 09/23/20 06:00 Resp 17 09/23/20 06:00 BP 146/66 09/23/20 06:00 Pulse Ox 98 09/23/20 06:00 Data NPU : 09/18/20 12:14 09/18/20 12:14 A&P Additional A&P Information (1) Constipation: (2) Encounter for postoperative care: (3) Numbness: (4) Neuropathy: (5) Decreased rectal sphincter tone: (6) Spinal fracture: (7) Chronic midline low back pain with bilateral sciatica: (8) Suicidal ideation: (9) Aggressive behavior: (10) Threatening suicide: Additional A&P Information This is a 65-year-old white male with a long history of medical issues including significant pain which has been without relief recently leading to an interaction with the police and his that led to him being put on a 96-hour hold. 1. Continue current medication. 2. Encourage individual, group and milieu therapy. 3. Continue every 15 minute checks for safety. 4. He continues to speak with paraphasias and get close to words or concepts but not quite be there it seems like he knows that he is not quite answering questions correctly and so he gets anxious and tries to explain away why he is unable to say or do what he needs to say or do. We are exploring whether there are any geriatric facilities that might be better equipped to manage his clearly cognitive disability at this time. Based on his 's interventions it is unclear whether she has been making up for his deficits for a long time and right now this Xanax overuse or withdraw is causing a delirium of sorts that make it even harder for him to manage himself or whether this represents just the Xanax impacted he will be fine once he gets some stabilization on a low enough dose not to be impactful. Involuntary Hold Information 96 Hour Hold: 96 Hour Involuntary Admission: Yes 96 Hour Hold Ending Date: 09/23/20 96 Hour Hold Ending Time: 00:00 Attestations NPU Medical Necessity Statement*: Inpatient hospitalization is medically necessary and the clinically appropriate intervention at this time. Will monitor med ications and make changes as indicated. Likely length of stay 2-4 days. We will file a 96-hour hold on the grounds of his inability to make informed consent in this delirious/withdrawal state versus overuse state of Xanax. Coding Level of Care Code Acute Web Marketing Intern for David Carranza
[2020-09-23 14:45] LABS: Basophils # 0.1 10^3/uL (0.0-0.1); Basophils % 0.6 %; Eosinophils # 0.2 10^3/uL (0.0-0.8); Hematocrit 43.7 % (42.0-52.0); Hemoglobin 14.9 g/dL (11.7-16.6); Lymphocytes # 0.7 10^3/uL (0.8-4.8); Lymphocytes % 8.3 %; Mean Corpuscular HGB Conc 34.1 g/dL (30.0-36.0); Mean Corpuscular Hemoglobin 31.4 pg (28.0-34.0); Mean Platelet Volume 9.5 fL (7.4-10.4); Monocytes # 0.7 10^3/uL (0.2-0.9); Monocytes % 8.9 %; Neutrophils # 6.61 10^3/uL (1.8-7.7); Neutrophils % 79.7 %; Nucleated Red Blood Cells % 0 %; Platelet Count 313 10^3/cmm (130-400); Red Blood Count 4.75 10^6/uL (4.1-5.3); Red Cell Distribution Width 11.9 % (12.1-15.1); White Blood Count 8.3 10^3/uL (4.0-10.0)
[2020-09-23 15:23] LABS: Alanine Aminotransferase 21 U/L (0-41); Albumin Level 4.5 g/dL (3.5-5.2); Alkaline Phosphatase 77 IU/L (40-130); Anion Gap 13.9 (5-19); Aspartate Amino Transferase 20 U/L (0-40); Blood Urea Nitrogen 8 mg/dL (8-23); Calcium 9.2 mg/dL (8.5-10.5); Carbon Dioxide 24 mmol/L (22-29); Chloride 101 mmol/L (98-107); Globulin 2.8 g/dL (1.3-4.6); Glomerular Filtration Rate 134.4 mL/min (90-130); Glucose 113 mg/dL (65-115); Osmolality Calculated 279 mOsm/kg (285-295); Potassium 3.9 mmol/L (3.5-5.1); Sodium 135 mmol/L (136-145); Total Bilirubin 0.4 mg/dL (0.15-1.2); Total Protein 7.3 g/dL (6.6-8.7)
[2020-09-23 19:27] LABS: Add Urine Microscopic? NO; Charge for UA Resulting for Rev
[2020-09-23 19:40] LABS: Bilirubin Urine Neg (Negative); Blood Urine Neg (Negative); Glucose Urine UA Norm (Normal); Ketones Urine Negative (Negative); Leukocyte Esterase Urine Negative (Negative); Nitrate Urine Negative (Negative); Protein Urine Neg (Negative); Specific Gravity, Urine 1.015 (1.005-1.030); Urine Appearance Clear (CLEAR); Urine Color Yellow (Yellow); Urobilinogen Urine Norm (Negative); pH Urine 5 (5-7)
[2020-09-23 19:56] VITALS: BP 116/80; PULSE 87; RESP 18; TEMP 36.9; O2SAT 99
[2020-09-24 06:00] VITALS: BP 135/93; PULSE 104; RESP 18; TEMP 37.3; O2SAT 96
[2020-09-24] MEDS: HYDROcodone-acetaminophen 5-325 mg Tablet 1 TAB PO (08:10)
[2020-09-24] MEDS: duloxetine 20 mg Capsule PO (08:10)
[2020-09-24] MEDS: docusate sodium 100 mg Capsule PO (08:10)
[2020-09-24] MEDS: ALPRAZolam 0.5 mg Tablet PO (08:10)
[2020-09-24] MEDS: loratadine 10 mg Tablet PO (08:11)
[2020-09-24] MEDS: lactulose oral liq 20 gm/30 mL UDC 10 GM PO (08:11)
[2020-09-24 13:58] VITALS: BP 117/74; PULSE 93; RESP 16; TEMP 36.9; O2SAT 96
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
[2020-09-24 14:36] VITALS: BP 117/74; PULSE 93; RESP 16; TEMP 36.9; O2SAT 96
== END 2020-09-24 14:56 | disposition home or self-care (01) | DRG 886 ==
LOC: ER 09-19 09:22 → NP 09-19 12:52
PROVIDERS: Nurse Practitioner Family; Admitting Provider Psychiatry & Neurology Psychiatry; Emergency Provider Family Medicine; PCP Family Medicine; Visit Provider Psychiatry & Neurology Psychiatry
DX: F91.1 Conduct disorder, childhood-onset type (principal); R45.851 Suicidal ideations; R41.0 Disorientation, unspecified; G89.29 Other chronic pain; M54.42 Lumbago with sciatica, left side; M54.41 Lumbago with sciatica, right side; K59.09 Other constipation; Z98.1 Arthrodesis status; G62.9 Polyneuropathy, unspecified; Z90.79 Acquired absence of other genital organ(s); Z87.891 Personal history of nicotine dependence; R20.0 Anesthesia of skin
CPT/HCPCS: 36415; 71045; 71046; 74177; 80053; 80306; 80307; 81003; 82140; 83605; 83690; 85025; 86140; 87426; 87635; 93005; 96372; 99285; J2060; J3486; J7030; Q0162; Q9967

== ENCOUNTER → 2020-09-28 08:12 | Outpatient (BNVA) | payer MEDICARE, SELFPAY | PROVIDERS: PCP Family Medicine; Visit Provider Anesthesiology | DX: G89.29 Other chronic pain (principal); M54.41 Lumbago with sciatica, right side; M54.42 Lumbago with sciatica, left side; G62.9 Polyneuropathy, unspecified; Z79.891 Long term (current) use of opiate analgesic | CPT/HCPCS: 99213 ==

== ENCOUNTER → 2020-11-04 10:38 | Outpatient (BNVA) | payer MEDICARE, SELFPAY | PROVIDERS: PCP Family Medicine; Visit Provider Anesthesiology | DX: G89.29 Other chronic pain (principal); M54.41 Lumbago with sciatica, right side; M54.42 Lumbago with sciatica, left side; K62.89 Other specified diseases of anus and rectum; R20.0 Anesthesia of skin; K59.00 Constipation, unspecified; Z87.891 Personal history of nicotine dependence | CPT/HCPCS: 99214 ==